=== PATIENT | male | born 1990 | race Caucasian/White ===

== ENCOUNTER 2018-08-06 22:52 | Inpatient (IN) | payer MEDICAID, OTHER ==
[~2018-08-06] VITALS: Ht 184.2 cm; Wt 76.0 kg
[~2018-08-06 22:52] MED LIST: CHLO10TA2 PO; OLAN5TAB3 PO
[2018-08-06] MEDS ORDERED: LORazepam 1MG TABLET ONE (23:15)
--- NOTE | 2018-08-06 23:15 | NUR ---
ONE BAG OF BELONGINGS STICKERED AND PLACED IN LOCKED CABINET.
--- NOTE | 2018-08-06 23:22 | NUR ---
PT MEDICATED PER JUN. UA OBTAINED AND TUBED TO LAB. POC DISCUSSED. PT IN CAMERA ROOM.
[2018-08-06 23:26] LABS: BASOPHILS # (AUTO) 0.04 x10^3/uL (0-0.1); BASOPHILS % (AUTO) 0 % (0-1); EOSINOPHILS # (AUTO) 0.01 x10^3/uL (0-0.4); EOSINOPHILS % (AUTO) 0 % (1-7); LYMPHOCYTES # (AUTO) 1.42 x10^3/uL (1-3.4); LYMPHOCYTES % (AUTO) 14 % (22-44); MD NO; MEAN CORPUSCULAR HEMOGLOBIN 31.9 pg (27.5-34.5); MEAN CORPUSCULAR HGB CONC 34.5 g/dL (33.2-36.2); MEAN CORPUSCULAR VOLUME 92.6 fL (81-97); MEAN PLATELET VOLUME 8.8 fL (7.4-10.4); MONOCYTES % (AUTO) 8 % (2-9); NEUTROPHILS # (AUTO) 7.79 x10^3/uL (1.8-6.8); NEUTROPHILS % (AUTO) 78 % (42-75); PLATELET COUNT 193 x10^3/uL (130-400); RED BLOOD COUNT 5.28 x10^6/uL (4.38-5.82); RED CELL DISTRIBUTION WIDTH 12.8 % (9.4-14.8)
[2018-08-06] MEDS ORDERED: LORazepam 1MG TABLET PO ONE (23:30)
[2018-08-06 23:39] LABS: ALANINE AMINOTRANSFERASE 46 U/L (12-78); ANION GAP 12 mmol/L (5-15); CALCIUM 9.7 mg/dL (8.5-10.1); CHLORIDE 100 mmol/L (98-107)
[2018-08-06 23:40] LABS: SALICYLATE LEVEL < 1.7 mg/dL (2.8-20.0)
[2018-08-06 23:41] LABS: ALKALINE PHOSPHATASE 68 U/L (45-117); BILIRUBIN,TOTAL 0.7 mg/dL (0.2-1.0); TOTAL PROTEIN 8.4 g/dL (6.4-8.2)
[2018-08-06 23:43] LABS: AMPHETAMINE SCREEN, URINE Positive (Negative); BARBITURATE SCREEN, URINE Negative (Negative); BENZODIAZEPINE SCREEN, URINE Negative (Negative); CANNABINOID SCREEN, URINE Negative (Negative); COCAINE SCREEN, URINE Negative (Negative); METHADONE SCREEN, URINE Negative (Negative); OPIATE SCREEN, URINE Negative (Negative)
[2018-08-06 23:47] LABS: ACETAMINOPHEN < 2 mcg/mL (10-30)
--- NOTE | 2018-08-07 00:49 | NUR ---
STATES ADMIT TO 2N. VITALS AND LAB WORK DISCUSSED. IV PLACED. LITER BOLUS INFUSING. POC DISCUSSED WITH PT. PT GIVEN TWO WARM BLANKETS PER REQUEST. PT DENIES FURTHER NEEDS AT THIS TIME. SITTER IN PLACE.
--- NOTE | 2018-08-07 00:56 | NUR ---
PT NOW MUCH MORE RELAXED. INTERMITTENTLY DOZING. FLUIDS INFUSING. PT DENIES FURTHER NEEDS AT THIS TIME.
[2018-08-07] MEDS ORDERED: SODIUM CHLORIDE 0.9% 1,000ML IVBOLUS ONE (01:00)
[2018-08-07] MEDS ORDERED: SODIUM CHLORIDE FLUSH 10ML SYR IVF ONE (01:00)
[2018-08-07] MEDS ORDERED: SODIUM CHLORIDE 0.9% 1,000 ML IV SCH (01:09)
[2018-08-07] MEDS ORDERED: LORazepam 2 MG/ML, 1ML IVPush PRN (01:30)
[2018-08-07] MEDS ORDERED: propanolol PO (01:37)
[2018-08-07] MEDS ORDERED: CARB200T PO (01:37)
[2018-08-07] MEDS ORDERED: PROP60CA8 PO (01:37)
--- NOTE | 2018-08-07 01:38 | NUR ---
med rec partially completed. pt unsure of dosages of meds or last taken.
--- NOTE | 2018-08-07 01:44 | NUR ---
2N UNABLE TO ACCEPT PT WITH IV MEDS ORDERED. ATTEMPTED TO CALL HOSPITALIST TO CHANGE ORDERS BUT WAS SENT TO VOICEMAIL. WILL ATTEMPT TO CALL AGAIN.
[2018-08-07 02:38] VITALS: BP 106/65
[2018-08-07 03:03] VITALS: BP 106/65
[2018-08-07 07:30] VITALS: BP 108/65
[2018-08-07 19:37] VITALS: BP 111/72
[2018-08-07] MEDS: LORazepam 1MG TABLET PO PRN (19:57)
[2018-08-08 05:36] LABS: ANION GAP 5 mmol/L (5-15); CALCIUM 8.8 mg/dL (8.5-10.1); CHLORIDE 107 mmol/L (98-107)
[2018-08-08 05:47] LABS: CREATININE 0.92 mg/dL (0.7-1.3); THYROID STIMULATING HORMONE 0.384 mIU/L (0.358-3.740)
[2018-08-08 06:16] LABS: BASOPHILS # (AUTO) 0.04 x10^3/uL (0-0.1); BASOPHILS % (AUTO) 1 % (0-1); EOSINOPHILS # (AUTO) 0.13 x10^3/uL (0-0.4); EOSINOPHILS % (AUTO) 2 % (1-7); LYMPHOCYTES # (AUTO) 1.87 x10^3/uL (1-3.4); LYMPHOCYTES % (AUTO) 33 % (22-44); MD NO; MEAN CORPUSCULAR HEMOGLOBIN 32.1 pg (27.5-34.5); MEAN CORPUSCULAR HGB CONC 34.2 g/dL (33.2-36.2); MEAN CORPUSCULAR VOLUME 93.8 fL (81-97); MEAN PLATELET VOLUME 9.1 fL (7.4-10.4); MONOCYTES # (AUTO) 0.54 x10^3/uL (0.2-0.8); MONOCYTES % (AUTO) 10 % (2-9); NEUTROPHILS # (AUTO) 3.03 x10^3/uL (1.8-6.8); NEUTROPHILS % (AUTO) 54 % (42-75); PLATELET COUNT 148 x10^3/uL (130-400); RED BLOOD COUNT 4.57 x10^6/uL (4.38-5.82)
[2018-08-08 07:58] VITALS: BP 105/65
[2018-08-08 11:22] VITALS: BP 122/85
[2018-08-08] MEDS ORDERED: IBUPROFEN 600 MG TABLET ONE (13:42)
[2018-08-08] MEDS ORDERED: IBUPROFEN 600 MG TABLET PO ONE (14:00)
[2018-08-08 19:59] VITALS: BP 130/88
[2018-08-08] MEDS: LORazepam 1MG TABLET PO PRN (20:44)
[2018-08-09 07:34] VITALS: BP 116/77
[2018-08-09] MEDS: LORazepam 1MG TABLET PO PRN (13:55)
[2018-08-09 20:11] VITALS: BP 123/77
[2018-08-09] MEDS: MELATONIN 5 MG TABLET PO SCH (23:45)
[2018-08-10 07:24] VITALS: BP 126/73
[2018-08-10 19:06] VITALS: BP 119/72
[2018-08-10] MEDS: MELATONIN 5 MG TABLET PO SCH (21:27)
[2018-08-11 07:44] VITALS: BP 101/59
[2018-08-11 19:44] VITALS: BP 111/76
[2018-08-11] MEDS: MELATONIN 5 MG TABLET PO SCH (21:00)
[2018-08-12 07:08] VITALS: BP 113/70
== END 2018-08-12 11:58 | DRG 897 ==
LOC: ED 08-07 01:11 → EDIP 08-07 01:15 → 2N 08-07 02:15
PROVIDERS: ADMIT Internal Medicine; ATTEND Internal Medicine
DX: F15.151 Other stimulant abuse with stimulant-induced psychotic disorder with hallucinations (principal); R45.851 Suicidal ideations; F17.200 Nicotine dependence, unspecified, uncomplicated; F25.9 Schizoaffective disorder, unspecified; F15.10 Other stimulant abuse, uncomplicated; Z81.8 Family history of other mental and behavioral disorders; Z88.8 Allergy status to other drugs, medicaments and biological substances; Z91.5 Personal history of self-harm
CPT/HCPCS: 36415; 80048; 80053; 80307; 80329; 84443; 85025; G0378; G0480; J7030

== ENCOUNTER 2018-08-19 17:56 | Emergency (ER) | payer MEDICAID, OTHER ==
[~2018-08-19] VITALS: Ht 185.4 cm; Wt 80.6 kg
[~2018-08-19 17:56] MED LIST changes: +CARB200T PO; +PROP60CA8 PO; +propanolol PO
[2018-08-19 18:23] VITALS: BP 136/94
--- NOTE | 2018-08-19 18:31 | NUR ---
PT IN ROOM AT THIS TIME. ALL BELONGINGS IN BAG AND IN LOCKER, LABELED. UA SENT ROOM SECURED. PT OFFERED WARM BLANKET.
[2018-08-19 18:57] LABS: AMPHETAMINE SCREEN, URINE Positive (Negative); BARBITURATE SCREEN, URINE Negative (Negative); BENZODIAZEPINE SCREEN, URINE Negative (Negative); CANNABINOID SCREEN, URINE Negative (Negative); COCAINE SCREEN, URINE Negative (Negative); METHADONE SCREEN, URINE Negative (Negative); OPIATE SCREEN, URINE Negative (Negative)
--- NOTE | 2018-08-19 19:39 | NUR ---
LATE NOTE 183. PT BIB [facility]. PER EMS PT RECENTLY RELEASED FROM [place] FOR SI. PT STATED TO EMS THAT HIS PLAN IS TO STARVE HIMSELF. CONFIRMED THIS WITH PATIENT. NO RECENT CHANGES IN PTS LIFE AND PT STAES NO AGGREVATING FACTORS CAUSED HIM TO HAVE THESE THOUGHTS.
--- NOTE | 2018-08-19 19:41 | NUR ---
PT REQUESTING ANOTHER WARM BLANKET. BLANKET PROVIDED. PT OFFERED A SANDWICH TO EAT AT THIS TIME HE ACCEPTED AND CONSUMED IT IN IT'S ENTIRITY.
== END 2018-08-19 20:10 | disposition home or self-care (01) ==
LOC: ED 20:03
DX: R45.851 Suicidal ideations (principal); Z76.5 Malingerer [conscious simulation]; Z72.9 Problem related to lifestyle, unspecified
CPT/HCPCS: 80307; 99283

== ENCOUNTER 2018-08-19 23:18 | Emergency (ER) | payer MEDICAID ==
[~2018-08-19] VITALS: Ht 182.9 cm; Wt 80.9 kg
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
--- NOTE | 2018-08-20 00:30 | NUR ---
PT. PROVIDED WITH CHICKEN BROTH AND CRACKERS PER REQUEST. PT. DENIES OHTER NEEDS. CALM AND COOPERATIVE WITH STAFF. SITTER IN RAMIREZ. ROOM SECURED.
[2018-08-20 01:07] LABS: BASOPHILS # (AUTO) 0.09 x10^3/uL (0-0.1); BASOPHILS % (AUTO) 1 % (0-1); EOSINOPHILS # (AUTO) 0.06 x10^3/uL (0-0.4); EOSINOPHILS % (AUTO) 1 % (1-7); LYMPHOCYTES # (AUTO) 2.07 x10^3/uL (1-3.4); LYMPHOCYTES % (AUTO) 22 % (22-44); MD NO; MEAN CORPUSCULAR HEMOGLOBIN 31.7 pg (27.5-34.5); MEAN CORPUSCULAR HGB CONC 34.1 g/dL (33.2-36.2); MEAN CORPUSCULAR VOLUME 92.8 fL (81-97); MEAN PLATELET VOLUME 8.2 fL (7.4-10.4); MONOCYTES % (AUTO) 6 % (2-9); NEUTROPHILS # (AUTO) 6.73 x10^3/uL (1.8-6.8); NEUTROPHILS % (AUTO) 71 % (42-75); PLATELET COUNT 245 x10^3/uL (130-400); RED CELL DISTRIBUTION WIDTH 12.6 % (9.4-14.8)
[2018-08-20 01:14] LABS: AMPHETAMINE SCREEN, URINE Negative (Negative); BARBITURATE SCREEN, URINE Negative (Negative); BENZODIAZEPINE SCREEN, URINE Negative (Negative); CANNABINOID SCREEN, URINE Negative (Negative); COCAINE SCREEN, URINE Negative (Negative); METHADONE SCREEN, URINE Negative (Negative); OPIATE SCREEN, URINE Negative (Negative)
[2018-08-20 01:19] LABS: ALANINE AMINOTRANSFERASE 41 U/L (12-78); ALBUMIN 3.6 g/dL (3.4-5.0); ANION GAP 8 mmol/L (5-15); CALCIUM 8.9 mg/dL (8.5-10.1); CHLORIDE 104 mmol/L (98-107); CREATININE 1.02 mg/dL (0.7-1.3)
[2018-08-20 01:20] LABS: SALICYLATE LEVEL < 1.7 mg/dL (2.8-20.0)
[2018-08-20 01:21] LABS: ALKALINE PHOSPHATASE 69 U/L (45-117); BILIRUBIN,TOTAL 0.7 mg/dL (0.2-1.0); TOTAL PROTEIN 7.2 g/dL (6.4-8.2)
[2018-08-20 01:23] LABS: ACETAMINOPHEN < 2 mcg/mL (10-30)
--- NOTE | 2018-08-20 02:30 | NUR ---
PT. RESTING ON GURNEY WITH EYES CLOSED. EVEN, NON-LABORED RESPIRATIONS VISIBLE. NADN. ROOM REMAINS SECURED. SITTER IN RAMIREZ.
--- NOTE | 2018-08-20 02:30 | NUR ---
[facility] CALLED, WATING FOR RESPONSE AT THIS TIME.
--- NOTE | 2018-08-20 03:26 | NUR ---
NO CHANGE IN PT. CONDITION/STATUS.
--- NOTE | 2018-08-20 04:25 | NUR ---
PT. CONTINUES RESTING ON GURNEY; EYES CLOSED. NADN. EVEN, NON-LABORED RESPIRATIONS VISIBLE. ROOM REMAINS SECURED. SITTER IN RAMIREZ.
--- NOTE | 2018-08-20 06:00 | NUR ---
PT. CONTINUES RESTING ON GURNEY WITH NADN. EYES CLOSED. EVEN, NON-LABORED NOTED. ROOM REMAINS SECURED. SITTER IN DOORWAY.
--- NOTE | 2018-08-20 06:39 | NUR ---
[facility] CALLED FOR SECOND TIME.
--- NOTE | 2018-08-20 07:00 | NUR ---
PT. IS CALM AND COOPERATIVE. PT.'S ROOM IS SECURED AND SAFETY MAINTAINED. SITTER IS OUTSIDE OF THE PT.'S ROOM BREAKFAST WAS ORDERED.
--- NOTE | 2018-08-20 07:58 | NUR ---
PRIVACY ATTORNEY: BREAK TRAYS DELIVERED, PT IN BED IN SUICIDE SECURED ROOM W/ SITTER AT DOORWAY, PT'S BELONGINGS SECURED BY PREVIOUS SHIFT.
--- NOTE | 2018-08-20 10:11 | NUR ---
DOUBLE SURFACE OPERATOR DISPATCHED FOR THIS PT.
--- NOTE | 2018-08-20 13:13 | NUR ---
PT. WAS UP TO SHOWER AND USE THE RESTROOM. PT.'S VITALS ARE STABLE. LUNCH WAS PROVIDED.
[2018-08-20 13:14] VITALS: BP 108/69
--- NOTE | 2018-08-20 14:17 | NUR ---
NO CHANGES AT THIS TIME.
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
--- NOTE | 2018-08-20 16:18 | NUR ---
PT. WAS MADE A LEGAL [address] CANALES.
--- NOTE | 2018-08-20 16:48 | NUR ---
PACKET FAXED TO [facility], [facility] AND [facility]
--- NOTE | 2018-08-20 17:09 | NUR ---
SUSANNA FROM [facility] CALLED TO DECLINE THIS PT.
--- NOTE | 2018-08-20 17:45 | NUR ---
SBAR report received from RNMindy. Dr. Carlson at bedside to evaluate pt for admission.
--- NOTE | 2018-08-20 17:56 | NUR ---
SBAR report given to RN, Adam, [facility]. Pt being accepted by Dr. Ndiaye.
[2018-08-20] MEDS ORDERED: LORazepam 1MG TABLET PO PRN (18:00)
[2018-08-20] MEDS ORDERED: ACETAMINOPHEN 325 MG TABLET PO PRN (18:00)
[2018-08-20] MEDS ORDERED: ONDANSETRON ODT 4 MG PO PRN (18:00)
[2018-08-20] MEDS ORDERED: DOCUSATE 100 MG CAPSULE PO PRN (18:00)
--- NOTE | 2018-08-20 19:22 | NUR ---
Pt report from zenaida case. This rn to assume care of pt. Awaiting [facility] transport @2100. No immediate needs from pt. Sitter in hallway. Roller doors in place.
--- NOTE | 2018-08-20 19:50 | NUR ---
Pt given sandwich and chips per request.
--- NOTE | 2018-08-20 20:35 | NUR ---
No immediate needs from pt. Sitter in hallway. Roller doors in place.
== END 2018-08-20 21:21 ==
LOC: ED 23:37 → EDIP 08-20 16:17 → UNDOADMIN 08-20 16:17 → ED 08-20 21:21
DX: R45.851 Suicidal ideations (principal); F25.9 Schizoaffective disorder, unspecified
CPT/HCPCS: 36415; 80053; 80307; 80329; 85025; 99285; G0480

== ENCOUNTER 2018-08-22 20:24 | Emergency (ER) | payer MEDICAID ==
[~2018-08-22] VITALS: Ht 188 cm; Wt 70.0 kg
[2018-08-22 20:26] VITALS: BP 148/72
[2018-08-22] MEDS ORDERED: DIPH,PERTUSS(ACELL),TET VAC/PF 0.5 ML IM-VACC ONE ×2 (20:45→21:00)
--- NOTE | 2018-08-22 21:16 | NUR ---
Pa at bedside for repair.
[2018-08-22] MEDS ORDERED: BACITRACIN ZINC OINT 500U/GM, 0.9 GM ONE (21:18)
--- NOTE | 2018-08-22 22:02 | NUR ---
Pt report given to Mora JONES at [facility]. Awaiting [facility] transport.
--- NOTE | 2018-08-22 22:15 | NUR ---
Transfer for patient to go back to [facility] set up. Patients care to be transferred to Dr. Higginbotham. Patient with Medicaid Insurance so [facility] called and transport set up. In [facility] will call at this time. On Legal Hold.
--- NOTE | 2018-08-22 22:27 | NUR ---
[id number] [facility] authorization code
--- NOTE | 2018-08-22 22:35 | NUR ---
Pt given water per request at this time.
== END 2018-08-22 22:51 ==
LOC: ED 20:40
DX: S61.511A Laceration without foreign body of right wrist, initial encounter (principal); Z72.9 Problem related to lifestyle, unspecified; F32.9 Major depressive disorder, single episode, unspecified; W27.8XXA Contact with other nonpowered hand tool, initial encounter; Y93.89 Activity, other specified; Y92.009 Unspecified place in unspecified non-institutional (private) residence as the place of occurrence of the external cause; Y99.8 Other external cause status
CPT/HCPCS: 12031; 90471; 90715

== ENCOUNTER 2018-11-21 02:56 | Emergency (ER) | payer MEDICAID ==
[~2018-11-21] VITALS: Ht 185.4 cm; Wt 81.0 kg
== END 2018-11-21 04:09 | disposition home or self-care (01) ==
LOC: ED 03:15
DX: F41.1 Generalized anxiety disorder (principal); F17.210 Nicotine dependence, cigarettes, uncomplicated
CPT/HCPCS: 99284

== ENCOUNTER 2018-11-24 | Emergency (ER) | payer MEDICAID ==
[~2018-11-24] VITALS: Ht 185.4 cm; Wt 90.2 kg
[2018-11-24 04:00] VITALS: BP 127/78
== END 2018-11-24 04:04 | disposition home or self-care (01) ==
LOC: ED 00:51
DX: T42.6X1A Poisoning by other antiepileptic and sedative-hypnotic drugs, accidental (unintentional), initial encounter (principal); G40.309 Generalized idiopathic epilepsy and epileptic syndromes, not intractable, without status epilepticus; F17.200 Nicotine dependence, unspecified, uncomplicated; F32.9 Major depressive disorder, single episode, unspecified; F41.1 Generalized anxiety disorder; F20.9 Schizophrenia, unspecified; R51 Headache; Y92.89 Other specified places as the place of occurrence of the external cause; Z72.9 Problem related to lifestyle, unspecified
CPT/HCPCS: 36415; 70450; 80053; 80307; 85025; 96374; 99284; J2060

== ENCOUNTER 2018-11-27 23:12 | Emergency (ER) | payer MEDICAID ==
[~2018-11-27] VITALS: Ht 185.4 cm; Wt 91.0 kg
[2018-11-28 04:02] VITALS: BP 116/71
== END 2018-11-28 17:55 | disposition home or self-care (01) ==
LOC: ED 11-28 02:17
DX: T14.91XA Suicide attempt, initial encounter (principal); F32.9 Major depressive disorder, single episode, unspecified; F41.1 Generalized anxiety disorder; F20.9 Schizophrenia, unspecified; F29 Unspecified psychosis not due to a substance or known physiological condition; Z72.9 Problem related to lifestyle, unspecified; Z87.891 Personal history of nicotine dependence; X78.1XXA Intentional self-harm by knife, initial encounter; Y93.89 Activity, other specified; Y92.89 Other specified places as the place of occurrence of the external cause; Y99.8 Other external cause status
CPT/HCPCS: 36415; 80048; 80307; 82040; 85025; 96372; 99284; J2426

== ENCOUNTER 2019-06-24 11:19 | Emergency (ER) | payer MEDICAID ==
[~2019-06-24] VITALS: Ht 185.4 cm; Wt 85.0 kg
[~2019-06-24 11:19] MED LIST changes: +GABA300C10 PO; +HALO5TAB5 PO; +LORA-446 PO; +OXCA600T3 PO; +PALI273S INJ; +PARO20TA98 PO; +PROP60CA36 PO; -PROP60CA8 PO; +QUET300T5 PO
--- NOTE | 2019-06-24 11:27 | NUR ---
[address]IDE LOCKER
[2019-06-24 11:29] VITALS: BP_DIAS 84
[2019-06-24 11:41] LABS: BASOPHILS # (AUTO) 0.02 x10^3/uL (0-0.1); BASOPHILS % (AUTO) 0 % (0-1); EOSINOPHILS # (AUTO) 0.03 x10^3/uL (0-0.4); EOSINOPHILS % (AUTO) 0 % (1-7); LYMPHOCYTES # (AUTO) 1.42 x10^3/uL (1-3.4); LYMPHOCYTES % (AUTO) 16 % (22-44); MD NO; MEAN CORPUSCULAR HEMOGLOBIN 31.4 pg (27.5-34.5); MEAN CORPUSCULAR HGB CONC 33.9 g/dL (33.2-36.2); MEAN CORPUSCULAR VOLUME 92.8 fL (81-97); MEAN PLATELET VOLUME 7.8 fL (7.4-10.4); MONOCYTES # (AUTO) 0.37 x10^3/uL (0.2-0.8); MONOCYTES % (AUTO) 4 % (2-9); NEUTROPHILS # (AUTO) 7.05 x10^3/uL (1.8-6.8); NEUTROPHILS % (AUTO) 79 % (42-75); PLATELET COUNT 273 x10^3/uL (130-400); RED BLOOD COUNT 4.93 x10^6/uL (4.38-5.82); RED CELL DISTRIBUTION WIDTH 12.6 % (9.4-14.8)
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
[2019-06-24 11:53] LABS: ALBUMIN 4.2 g/dL (3.4-5.0); ANION GAP 8 mmol/L (5-15); CALCIUM 8.7 mg/dL (8.5-10.1); CHLORIDE 106 mmol/L (98-107); CREATININE 1.09 mg/dL (0.7-1.3); SALICYLATE LEVEL < 1.7 mg/dL (2.8-20.0)
[2019-06-24 12:23] LABS: AMPHETAMINE SCREEN, URINE Negative (Negative); BARBITURATE SCREEN, URINE Negative (Negative); BENZODIAZEPINE SCREEN, URINE Negative (Negative); CANNABINOID SCREEN, URINE Negative (Negative); COCAINE SCREEN, URINE Negative (Negative); METHADONE SCREEN, URINE Negative (Negative); OPIATE SCREEN, URINE Negative (Negative)
--- NOTE | 2019-06-24 12:30 | NUR ---
PT GIVEN MEAL TRAY, SITTE PRESENT. NO NEEDS AT THIS TIME
--- NOTE | 2019-06-24 14:00 | NUR ---
[facility] AT BEDSIDE.
--- NOTE | 2019-06-24 14:43 | NUR ---
BREAK RN: PT SEEN BY [facility]. HOLD TO BE LIFTED AND PT TO BE DISCHARGED.
[2019-06-24 14:53] VITALS: BP_SYST 121
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
== END 2019-06-24 15:01 | disposition home or self-care (01) ==
LOC: ED 14:56
DX: F20.9 Schizophrenia, unspecified (principal); F32.9 Major depressive disorder, single episode, unspecified; F41.9 Anxiety disorder, unspecified
CPT/HCPCS: 36415; 80048; 80307; 82040; 85025; 99283